=== PATIENT | female | born 1990 | race American Indian/Alaskan Native ===

== ENCOUNTER 2016-12-26 13:44 | Emergency (ER) | payer MEDICAID ==
[2016-12-26 14:32] VITALS: BP 127/60
[2016-12-26 15:14] LABS: Bilirubin,Urine NEG (Negative); Blood,Urine LG (Negative); Ketones,Urine NEG (Negative); Leukocyte Esterase,Urine LG (Negative); Mucus,Urine FEW /HPF; Nitrite,Urine POS (Negative); Urobilinogen,Urine < 2.0 mg/dL (<2.0)
[2016-12-26 15:17] LABS: RBC,Urine > 182.0 /HPF (0.0-6.0); WBC,Urine > 182.0 /HPF (0.0-6.0)
[2016-12-26] MEDS ORDERED: XYLOCAINE 1% MPF 5 mL INFILTRATI ONE (15:22)
[2016-12-26] MEDS ORDERED: ROCEPHIN IM ONE (15:22)
--- NOTE | 2016-12-26 15:35 | Emergency Department Report ---
Entered by EBONIE BAEAZ, acting as scribe for LINNETTE GARCIA NP. ED Female HPI - General Chief complaint: Urogenital-Female Stated complaint: POSS UTI/POSS ALLERIC REACTION Time Seen by Provider: 12/26/16 14:36 Source: patient Mode of arrival: Ambulatory Limitations: No Limitations - History of Present Illness Initial comments: 26 y/o female with PMHx of eczema, presents to the ED c/o urinary frequency and dysuria beginning 1 week ago. Associated symptoms of occasional hematuria and lower back pain, but she denies nausea, vomiting, fever, chills, chest pain, SOB , and vaginal discharge. Noted the patient is sexually active and denies any chance that she is . Patient denies any exposure to STD. Secondary c/o facial rash of unknown onset. She states the rash began shortly after getting her face waxed. LMP 12/21/2016. Complaint: dysuria (occasional ), other (occasional hematuria) -: week(s) (1) Radiation: non-radiating Severity: mild Consistency: constant Improves with: none Worsens with: urination Are you Now?: No Last Menstrual Period: 12/21/16 EDC: 09/27/17 Associated Symptoms: dysuria, hematuria (occasional ), other (lower back pain, urinary frequency, denies chest pain). denies: vaginal discharge, abdominal pain, nausea/vomiting, fever/chills, headaches, loss of appetite, seizure, shortness of breath - Related Data Sexually active: Yes Previous Rx's Medication Instructions Recorded Last Taken Type Ciprofloxacin HCl [Ciprofloxacin 500 mg PO Q12H 7 Days 12/26/16 Unknown Rx TAB] Allergies Allergy/AdvReac Type Severity Reaction Status Date / Time tomato AdvReac Rash Verified 12/26/16 14:24 ED Review of Systems Comment: All other systems reviewed and negative Constitutional: denies: chills, fever Eyes: denies: eye pain, eye discharge, vision change ENT: denies: ear pain, throat pain Respiratory: denies: shortness of breath Cardiovascular: denies: chest pain Endocrine: no symptoms reported Gastrointestinal: denies: abdominal pain, nausea, diarrhea Genitourinary: dysuria, frequency, hematuria (occasional). denies: other ( vaginal discharge) Musculoskeletal: other (lower back pain) Skin: rash (on the face) Neurological: denies: headache, weakness, paresthesias Psychiatric: denies: anxiety, depression Hematological/Lymphatic: denies: easy bleeding, easy bruising ED Past Medical Hx - Past Medical History Additional medical history: ECZEMA - Surgical History Additional Surgical History: C-SECTIONS X 2 - Social History Smoking Status: Never Smoker Substance Use Type: None - Medications Home Medications: Home Medications Medication Instructions Recorded Confirmed Last Taken Type Ciprofloxacin HCl [Ciprofloxacin 500 mg PO Q12H 7 Days 12/26/16 Unknown Rx TAB] ED Physical Exam - General Limitations: No Limitations General appearance: alert, in no apparent distress - Head Head exam: Present: atraumatic, normocephalic, other (noted is a rash on the face that is consistent with acne) - Eye Eye exam: Present: normal appearance, EOMI - ENT ENT exam: Present: normal external ear exam - Neck Neck exam: Present: normal inspection, full ROM. Absent: tenderness - Respiratory Respiratory exam: Present: normal lung sounds bilaterally. Absent: respiratory distress, wheezes, rales, rhonchi, stridor - Cardiovascular Cardiovascular Exam: Present: regular rate, normal rhythm, normal heart sounds. Absent: systolic murmur, diastolic murmur, rubs, gallop - GI/Abdominal GI/Abdominal exam: Present: soft. Absent: distended, tenderness - Extremities Exam Extremities exam: Present: normal inspection, full ROM, normal capillary refill - Back Exam Back exam: Present: normal inspection, full ROM, CVA tenderness (R), CVA tenderness (L) - Neurological Exam Neurological exam: Present: alert, oriented X3, CN II-XII intact, normal gait - Psychiatric Psychiatric exam: Present: normal affect, normal mood - Skin Skin exam: Present: warm, dry, intact, rash (on the face, consistent with acne) ED Course Vital Signs 12/26/16 14:27 Temperature 97.9 F Pulse Rate 78 Respiratory 17 Rate Blood Pressure 127/60 O2 Sat by Pulse 100 Oximetry ED Medical Decision Making - Medical Decision Making Ed course: This 26-year-old female that presents with UTI versus cystitis versus polynephritis 1- patient received Rocephin 250 mg IM. Patient tolerated well no sign distress. 2- UA and test obtained in the ER. Results were discussed with the patient. 3- patient does not seem toxic or ill appearance. 4- patient agreed to discharge plan and treatment. No further questions noted by the patient. 5- I instructed the patient and further sinus symptoms of UTI to report to primary care doctor or emergency room. 6- I also instructed the patient to finish full course of antibiotics. ED Disposition Clinical Impression: Pyelonephritis, Cystitis Urinary tract infection Qualifiers: Urinary tract infection type: site unspecified Hematuria presence: with hematuria Qualified Code(s): N39.0 - Urinary tract infection, site not specified ; R31.9 - Hematuria, unspecified Disposition: DISCHARGED TO HOME OR SELFCARE Is pt being admited?: No Does the pt Need Aspirin: No Condition: Stable Instructions: Urinary Tract Infection in Women (ED), Acute Pyelonephritis (ED) Additional Instructions: Follow-up with her primary care doctor in 3-5 days. If symptom worsens his report back to emergency room. Take full course of antibiotics as prescribed. Prescriptions: Ciprofloxacin HCl [Ciprofloxacin TAB] 500 mg PO Q12H 7 Days Referrals: PRIMARY CARE, [Primary Care Provider] - 3-5 Days [facility] [Outside] - 3-5 Days [facility] [Outside] - 3-5 Days Forms: Work/School Release Form(ED) This documentation as recorded by the FELISHA ward GRACE,accurately reflects the service I personally performed and the decisions made by ,LINNETTE GARCIA, MONICA.
== END 2016-12-26 15:41 | disposition home or self-care (01) ==
LOC: ED 13:44
DX: N12 Tubulo-interstitial nephritis, not specified as acute or chronic (principal); N30.91 Cystitis, unspecified with hematuria; N39.0 Urinary tract infection, site not specified; Z91.018 Allergy to other foods
CPT/HCPCS: 81001; 81025; 96372; 99283; J0696